=== PATIENT | female | born 1970 | race Caucasian/White ===

== ENCOUNTER 2020-03-24 09:52 | Emergency (ER) | payer BC, SELFPAY ==
--- NOTE | 2020-03-24 10:14 | HMH.EDUTC ---
[facility] [place] Disposition Clinical Impression: Exposure to COVID-19 virus Pharyngitis Qualifiers: Pharyngitis/tonsillitis etiology: unspecified etiology Qualified Code(s): J02.9 - Acute pharyngitis, unspecified Disposition: Home, Self-Care Condition on Discharge: Good Instructions: Sore Throat, Preventing the Spread of Coronavirus Discharge Instructions Additional Instructions: Drink plenty of fluids. Take tylenol for pain or fever. Take the medications as directed. Follow up with your regular doctor. GO TO THE ER FOR ANY WORSENING SYMPTOMS Referrals: Keith Mccain [Primary Care Provider] - Forms: Work/School Release Time of Disposition: 10:33 Medical Decision Making - Medical Records Medical records reviewed: No: I reviewed the patient's medical records. - Lukas Inquiry Pt receiving controlled substance: No Vital Signs: 03/24/20 10:21 03/24/20 10:38 Temperature 98.4 F 98.4 F Temperature Source Oral Pulse Rate 84 Pulse Rate [Left Brachial] 84 Respiratory Rate 20 20 Blood Pressure 130/86 Blood Pressure [Left Arm] 130/86 Blood Pressure Mean [Left Arm] 100 Blood Pressure Source [Left Arm] Automatic Cuff Blood Pressure Position [Left Arm] Sitting 02 Sat by Pulse Oximetry 97 Oxygen Delivery Method Room Air Orders (Tests/Meds): ORDERS Category Date Time Status Covid-19 Nasal PCR Sendout Ady Routine Lab 03/24/20 10:03 Received [facility] [place] HPI - General Stated complaint: Covid exposure Time Seen by Provider: 03/24/20 10:14 - History of Present Illness Provider Complaint: Her tested positive for covid yesteday. She states that last week she was having a cough, sinus congestion and sore throat. Since then her symptoms have got better other than she is still having the sore throat. - Related Data Home Medications Medication Instructions Recorded Confirmed Famotidine 40 mg PO DAILY 03/24/20 03/24/20 Gabapentin [Neurontin 600mg 600 mg PO TID 03/24/20 03/24/20 tablet] Allergies Allergy/AdvReac Type Severity Reaction Status Date / Time codeine Allergy Verified 05/30/18 11:54 [facility] History - Hepatitis A Screen Attestation statement:: This patient has been screened for Hepatitis A risk factors. I have reviewed the patient's past medical history: Yes - Social History Smoking Status: Never smoker Alcohol Intake: never Occupational Status: other ROS Obtained: Yes All systems reviewed & no additional complaints - Constitutional Constitutional: Reports system reviewed and no additional complaints, except as docu - Eyes Eyes: Reports system reviewed and no additional complaints, except as docu - ENT Ears, Nose, Mouth, and Throat: Reports system reviewed and no additional complaints, except as docu - Cardiovascular Cardiovascular: Reports system reviewed and no additional complaints, except as docu - Respiratory Respiratory: Yes system reviewed and no additional complaints, except as docu - Gastrointestinal Gastrointestingal: Reports: system reviewed and no additional complaints, except as docu Physical Exam - General General appearance: alert, in no apparent distress - Head Head exam: atraumatic, normocephalic, normal inspection - Eye Eye exam: Present: normal appearance, PERRL, EOMI - ENT ENT exam: Present: normal exam, normal oropharynx, mucous membranes moist, TM's normal bilaterally, normal external ear exam - Neck Neck exam: Present: normal inspection, full ROM, trachea midline. Absent: meningismus, lymphadenopathy - Chest Chest inspection: Present: normal inspection, symmetric chest wall rise. Absent: tenderness - Respiratory Respiratory exam: Present: normal lung sounds bilaterally. Absent: respiratory distress - Cardiovascular Cardiovascular exam: Present: regular rate, normal rhythm. Absent: JVD - Abdominal Exam Abdominal exam: Present: soft, normal bowel sounds. Absent: distention, tenderness, guar
[2020-03-24 10:21] VITALS: BP 130/86; PULSE 84; RESP 20; TEMP 36.9; O2SAT 97; BMI 30.4
[2020-03-24 10:38] VITALS: BP 130/86; PULSE 84; RESP 20; TEMP 36.9; O2SAT 97
[2020-03-25 12:10] LABS: Covid-19 Nasal PCR Sendout Lex Positive
--- NOTE | 2020-03-25 12:15 | PC.NURSE ---
Patient notified of positive COVID results.
== END 2020-03-24 10:39 | disposition home or self-care (01) ==
PROVIDERS: Emergency Provider Nurse Practitioner Family; PCP Family Medicine
DX: U07.1 COVID-19 (principal)
CPT/HCPCS: 99201; U0004

== ENCOUNTER 2020-12-26 10:29 | Emergency (ER) | payer OTHER, SELFPAY ==
[2020-12-26 10:50] VITALS: BP 138/76; PULSE 80; RESP 18; TEMP 36.4; O2SAT 98; BMI 32.6
--- NOTE | 2020-12-26 11:25 | HMH.EDUTC ---
[facility] [place] Clinical Impression: Low back pain with sciatica Qualifiers: Chronicity: unspecified Back pain laterality: left Sciatica laterality: sciatica of left side Qualified Code(s): M54.42 - Lumbago with sciatica, left side Disposition: Home, Self-Care Condition on Discharge: Good Instructions: Low Back Pain, DI for Low Back Pain Additional Instructions: *Ibuprofen steph 6 hours with meal as needed for pain/inflammation *Remember you had a Toradol shot in the clinic today, which is similar to Motrin *Not additional anti-inflammatory like motrin, aleve, advil with the above amount of ibuprofen. You can still take Tylenol every 4 hours as needed if you need something else for pain *Ice 20 minutes every 2 hours for the first 48 hours after the initial injury followed by moist heat every 20 minutes 3-4 times a day to affected area *Muscle relaxer every 8 hours as needed for muscle spasms but remember, it WILL cause drowsiness You cannot take it and drive, operate machinery or care for small children. *Keep this area active, no movement leads to more stiffness, However take it easy and avoid heavy lifting pushing or pulling *Follow up with you family doctor if no improvement for further treatment Prescriptions: Etodolac 200 mg PO Q6HP PRN #20 cap PRN Reason: Moderate Pain Transmission Status: Received by [facility] #[id number] Cyclobenzaprine HCl [Flexeril 10mg tablet] 10 mg PO Q8HP PRN #15 tab PRN Reason: Muscle Spasm Transmission Status: Received by [facility] #[id number] Referrals: Provider,Referral, MD [Primary Care Provider] - As needed Forms: Work/School Release Time of Disposition: 11:59 Medical Decision Making - Lukas Inquiry Pt receiving controlled substance: No Lukas was queried for this patient: No Vital Signs: 12/26/20 10:50 12/26/20 11:51 Temperature 97.6 F 97.6 F Temperature Source Temporal Artery Scan Pulse Rate 80 Pulse Rate [Right Brachial] 80 Respiratory Rate 18 18 Blood Pressure 138/76 Blood Pressure [Right Arm] 138/76 Blood Pressure Mean [Right Arm] 96 Blood Pressure Source [Right Arm] Automatic Cuff Blood Pressure Position [Right Arm] Sitting 02 Sat by Pulse Oximetry 98 Oxygen Delivery Method Room Air Orders (Tests/Meds): ED MEDICATIONS Discontinued Medications Generic Name Dose Route Start Last Admin Trade Name Dhruv PRN Reason Stop Dose Admin Ceftriaxone Sodium 1 gm 12/26/20 11:31 12/26/20 11:51 Ceftriaxone 1gm Vial IM 12/26/20 11:32 Not Given ONCE ONE Protocol Ketorolac Tromethamine 60 mg 12/26/20 11:33 12/26/20 11:45 Ketorolac 60mg/2ml Vial IM 12/26/20 11:34 60 mg ONCE ONE Administration Lidocaine HCl 0 ml 12/26/20 11:31 12/26/20 11:51 Lidocaine 1% 5ml Pf Vial IM 12/26/20 11:32 Not Given ONCE ONE Methylprednisolone Sodium Succinate 125 mg 12/26/20 11:31 12/26/20 11:45 Methylprednisolone Sod Succ 125mg Vial IM 12/26/20 11:32 125 mg ONCE ONE Administration Medical Decision Narrative: Discusses xray with patient and she declined states that she has already had MRI and has history of back pain and fusion [facility] [place]PI - General Stated complaint: lower back pain Time Seen by Provider: 12/26/20 11:26 Mode of Arrival: Ambulatory Source of Information: Patient Limitations: No Limitations Description of Symptoms (Recalled from Triage Doc. by RN): PATIENT STATES SHE WAS CRAWLING UNDER THE SINK ON SATURDAY AND PULLED MUSCLES TO LEFT HIP AND LEFT LOWER BACK HEENT Symptoms (Recalled from RN notes): No Resp Symptoms (Recalled from RN notes): No Skin Symptoms (Recalled from RN notes): No MS Symptoms (Recalled from RN notes): Yes Functional Status (Recalled from RN notes): WNL - History of Present Illness Provider Complaint: Patient states that she has problems in her lower back State that on Saturday she crawled under her sink and was working on her plumbing States that ever since she has been having lalitha
[2020-12-26 11:51] VITALS: BP 138/76; PULSE 80; RESP 18; TEMP 36.4; O2SAT 98
== END 2020-12-26 12:00 | disposition home or self-care (01) ==
PROVIDERS: Emergency Provider Nurse Practitioner
DX: M54.42 Lumbago with sciatica, left side (principal)
CPT/HCPCS: 96372; 99202; G0463

== ENCOUNTER → 2022-03-16 10:45 | Outpatient (CLI) | payer OTHER, SELFPAY ==
--- NOTE | 2022-03-16 11:00 | XR_ITS ---
FINAL REPORT CLINICAL HISTORY: ankle pain, hx tendon repair FINDINGS: RIGHT ANKLE Three views of the right ankle were obtained. There is no acute fracture or dislocation. The joint spaces and mortise are intact. There is a small plantar calcaneal spur. There is no soft tissue abnormality. IMPRESSION: No acute bony abnormality. Reviewed, Interpreted and Dictated by Bhupendra Castellanos III, MD Transcribed by Lis Shea Authenticated and [facility]
== END ==
PROVIDERS: PCP Internal Medicine; Visit Provider Orthopaedic Surgery
DX: M25.571 Pain in right ankle and joints of right foot (principal)
CPT/HCPCS: 73610

== ENCOUNTER 2023-01-20 13:48 | Emergency (ER) | payer OTHER, SELFPAY ==
[2023-01-20 13:49] VITALS: BP 151/84; PULSE 104; RESP 18; TEMP 37.1; O2SAT 97; BMI 31.3
--- NOTE | 2023-01-20 14:13 | EXP.UTC ---
Discharge Plan Disposition Patient Disposition: Home, Self-Care Condition: Good Prescriptions Prescriptions: New benzonatate [benzonatate] 100 mg capsule 100 mg PO TIDP PRN (Reason: Cough) Qty: 30 0RF ondansetron 4 mg Tablet,Disintegrating 4 mg PO Q8H PRN (Reason: Nausea) Qty: 12 0RF No Action ondansetron 4 mg tablet,disintegrating 4 mg PO Patient Comments: DISSOLVE 1 TABLET ON TONGUE EVERY 6 HOURS NEEDED FOR NAUSEA phentermine 37.5 mg capsule 37.5 mg PO Patient Comments: TAKE 1 CAPSULE BY MOUTH EVERY DAY loratadine [Claritin] 10 mg tablet 10 mg PO DAILY fluconazole [Diflucan] 150 mg tablet 150 mg PO ONCE Qty: 1 0RF tramadol 100 mg tablet 100 mg PO Q6H PRN (Reason: pain) Qty: 8 0RF sulfamethoxazole-trimethoprim [Bactrim DS] 800-160 mg tablet 1 tab PO Q12H 10 Days Qty: 20 0RF gabapentin 600 MG tablet 600 mg PO TID Referrals Follow up/Referrals: Bonilla Lyons [Primary Care Provider] - See instructions Activity Restrictions/Add. Instructions Additional Instructions/Restrictions: Drink plenty of fluids. Take tylenol or ibuprofen for pain or fever. Take the medications as directed. Follow up with your regular doctor. GO TO THE ER FOR ANY WORSENING SYMPTOMS Clinical Impressions Clinical Impression: COVID-19, Acute viral syndrome Stand Alone Forms Stand Alone Forms: Work/School Release Instructions Patient Instructions: Coronavirus Disease 2019, Preventing the Spread of Coronavirus Discharge Instructions Discharge ED Provider: Rod Sommer [facility] General Stated complaint: congestion, body ache and NEWELL Mode of Arrival: Ambulatory Source of Information: Patient Limitations: No Limitations Time Seen by Provider: 01/20/23 14:13 Description of Symptoms (Recalled from Triage Doc. by RN): Reports being positive on a home covid test today. Complaint of body aches, sneezing cough and headache. HEENT Symptoms (Recalled from RN notes): Yes Resp Symptoms (Recalled from RN notes): No Skin Symptoms (Recalled from RN notes): No MS Symptoms (Recalled from RN notes): No Functional Status (Recalled from RN notes): wnl History of Present Illness Provider Complaint: she state that for the past 3 days she has had body aches, chills, fever, malaise, cough and congestion. She took a home covid-19 test this morning and it was positive. Related Data Home Medications Medication Instructions Recorded Confirmed gabapentin 600 mg tablet 600 mg PO TID GASTRITIS 03/24/20 03/16/22 loratadine 10 mg tablet (Claritin) 10 mg PO DAILY 11/24/21 03/16/22 ondansetron 4 mg disintegrating 4 mg PO 11/24/21 03/16/22 tablet phentermine 37.5 mg capsule 37.5 mg PO 11/24/21 03/16/22 Previous Rx's Medication Instructions Recorded fluconazole 150 mg tablet 150 mg PO ONCE #1 tab 11/24/21 (Diflucan) sulfamethoxazole 800 1 tab PO Q12H 10 days #20 tabs 11/24/21 mg-trimethoprim 160 mg tablet (Bactrim DS) tramadol 100 mg tablet 100 mg PO Q6H PRN pain #8 tabs 11/24/21 benzonatate 100 mg capsule 100 mg PO TIDP PRN Cough #30 caps 01/20/23 ondansetron 4 mg disintegrating 4 mg PO Q8H PRN Nausea #12 tabs 01/20/23 tablet Allergies Allergy/AdvReac Type Severity Reaction Status Date / Time codeine Allergy Verified 03/16/22 12:13 Worker's Comp Is this a Worker's Comp case?: No [facility] Disclaimer: The information contained in this section may have been updated after the patient was seen, as this information can be updated by other users. Social History Smoking Status: Never smoker alcohol intake: never current occupational status: other Travel in the last 8 weeks: None ROS Obtained: Yes All systems reviewed & no additional complaints except as documented Constitutional Constitutional: Reports chills and Reports fever(s) Eyes Eyes: Denies eye discharge ENT Ears, Nose
[2023-01-20 14:55] VITALS: BP 151/84; PULSE 104; RESP 18; TEMP 37.1; O2SAT 97
== END 2023-01-20 14:56 | disposition home or self-care (01) ==
PROVIDERS: Emergency Provider Nurse Practitioner Family; PCP Internal Medicine
DX: U07.1 COVID-19 (principal); R50.9 Fever, unspecified; R53.81 Other malaise
CPT/HCPCS: 99212; 99214; G0463

== ENCOUNTER 2023-06-26 08:05 | Emergency (ER) | payer BC, OTHER, SELFPAY ==
[2023-06-26 08:15] VITALS: BP 125/77; PULSE 80; RESP 19; TEMP 37.1; O2SAT 99; BMI 31.6
--- NOTE | 2023-06-26 08:31 | EXP.UTC ---
Discharge Plan Disposition Patient Disposition: Home, Self-Care Condition: Good Prescriptions Prescriptions: New pseudoephedrine HCl 30 mg tablet 30 mg PO Q6HP PRN (Reason: Congestion) Qty: 30 0RF methylprednisolone 4 mg Tablets,Dose Pack 4 mg PO DIRECTED 6 Days Qty: 21 0RF Rx Instructions: Take 1 pack as directed for 6 days amoxicillin-pot clavulanate 875-125 mg Tablet 1 tab PO Q12H Qty: 20 0RF No Action loratadine [Claritin] 10 mg tablet 10 mg PO DAILY Xiidra 5 % dropperette 1 drp Eye-Both BID famotidine 40 mg tablet 40 mg PO DAILY Wegovy 0.5 mg/0.5 mL pen injector See Rx Instructions .ROUTE .COMPLEX Rx Instructions: see rx dosage lisdexamfetamine [Vyvanse] 40 mg capsule 40 mg PO DAILY gabapentin 600 MG tablet 600 mg PO TID Referrals Follow up/Referrals: Provider,Referral, MD [Primary Care Provider] - See instructions Activity Restrictions/Add. Instructions Additional Instructions/Restrictions: Drink plenty of fluids. Take tylenol or ibuprofen for pain or fever. Take the medications as directed. Don't take the pseudophedrine for longer that a couple of days. It might cause your blood pressure to go up. Follow up with your regular doctor. GO TO THE ER FOR ANY WORSENING SYMPTOMS Clinical Impressions Clinical Impression: Otitis media, right Instructions Patient Instructions: Middle Ear Infection, Amoxicillin and Clavulanic Acid, Dexamethasone Injection Discharge ED Provider: Rod Sommer [facility] General Stated complaint: pain, popping in rt ear Time Seen by Provider: 06/26/23 08:30 History of Present Illness Provider Complaint: She states that for the past 3 days she has had worsening right ear pain and pressure. She also has had a runny nose. She denies chest congestion. She denies fever. Related Data Home Medications Medication Instructions Recorded Confirmed gabapentin 600 mg tablet 600 mg PO TID GASTRITIS 03/24/20 06/26/23 loratadine 10 mg tablet (Claritin) 10 mg PO DAILY 11/24/21 06/26/23 famotidine 40 mg tablet 40 mg PO DAILY 06/19/23 06/26/23 lifitegrast 5 % eye drops in a 1 drp Eye-Both BID 06/19/23 06/26/23 dropperette (Xiidra) lisdexamfetamine 40 mg capsule 40 mg PO DAILY 06/19/23 06/26/23 (Vyvanse) semaglutide (weight loss) 0.5 See Rx Instructions .Route .COMPLEX 06/19/23 06/26/23 mg/0.5 mL subcutaneous pen injector (Stephen) Previous Rx's Medication Instructions Recorded amoxicillin 875 mg-potassium 1 tab PO Q12H #20 tabs 06/26/23 clavulanate 125 mg tablet methylprednisolone 4 mg tablets in 4 mg PO DIRECTED 6 days #21 tabs 06/26/23 a dose pack pseudoephedrine HCl 30 mg tablet 30 mg PO Q6HP PRN Congestion #30 06/26/23 tabs Allergies Allergy/AdvReac Type Severity Reaction Status Date / Time codeine Allergy Verified 06/26/23 08:39 [facility] Disclaimer: The information contained in this section may have been updated after the patient was seen, as this information can be updated by other users. Medical History (Updated 06/26/23 @ 08:54 by Rod Sommer APRN) Acute carpal tunnel syndrome Decreased libido Dyspareunia Vaginal dryness Surgical History H/O tubal ligation H/O: hysterectomy History of back surgery History of cholecystectomy S/P tendon repair Family History Other Cancer Coronary artery disease Heart attack Hyperlipidemia Hypertension Thyroid disorder Social History Smoking Status: Never smoker alcohol intake: never current occupational status: other Travel in the last 8 weeks: None ROS Obtained: Yes All systems reviewed & no additional complaints except as documented Constitutional Constitutional: Denies chills and Denies fever(s) Eyes Eyes: Denies eye discharge ENT Ears, Nose, Mouth, and Throat: Denies ear discharge, Reports otalgia, Denies hearing loss, Denies sinus pain and Reports sore throat Cardiovascular Cardiovascular: Denies chest pain and Denies dyspnea Respiratory Respiratory: Denies chest congestion, Reports cough and Denies dyspnea Gastrointestinal Gastrointestingal: Denies abdominal pain, diarrhea, nausea or vomiting Musculoskeletal Musculoskeletal: Denies arthralgias Integumentary/Breasts Skin/Breast: Denies rash Physical Exam General General appearance: alert and in no apparent distress Head Head exam: atraumatic, normocephalic and normal inspection Eye Eye exam: Present normal appearance; Absent PERRL or EOMI ENT ENT exam: Present mucous membranes moist and normal external ear exam Expanded ENT Exam TM/Canal exam: Bilateral TM: erythema, bulging and effusion Nose exam: Absent sinus tenderness Nasal speculum exam: Bilateral: normal Mouth exam: Present normal external inspection and other; Absent drooling Teeth exam: Present normal inspection Throat exam: Present tonsillar erythema and tonsillomegaly Neck Neck exam: Present normal inspection, full ROM and trachea midline; Absent tenderness, meningismus or lymphadenopathy Chest Chest inspection: Present normal inspection and symmetric chest wall rise; Absent tenderness Respiratory Respiratory exam: Present normal lung sounds bilaterally; Absent respiratory distress, wheezes or stridor Cardiovascular Cardiovascular exam: Present regular rate, normal rhythm and normal heart sounds; Absent tachycardia or irregular rhythm Abdominal Exam Abdominal exam: Present soft and normal bowel sounds; Absent distention, tenderness, guarding, rebound or rigidity Extremities Exam Extremities exam: Present normal inspection and normal capillary refill; Absent tenderness, joint swelling or calf tenderness Back Exam Back exam: Present normal inspection and full ROM; Absent tenderness, CVA tenderness (R) or CVA tenderness (L) Neurological Exam Neurological exam: Present alert, oriented X3, CN II-XII intact, normal gait and reflexes normal; Absent motor sensory deficit Psychiatric Psychiatric exam: Present normal affect and normal mood Skin Skin exam: Present warm, dry, intact and normal color Lymphatic Lymphatic Findings: no adenopathy Medical Decision Making Medical Records Medical records reviewed: No I reviewed the patient's medical records. Lukas Inquiry Pt receiving controlled substance: No
[2023-06-26] MEDS: DEXAMETHASONE 4MG/ML 1ML VIAL 8 MG IM (08:49)
[2023-06-26 09:06] VITALS: BP 125/77; PULSE 80; RESP 18; TEMP 37.1; O2SAT 99
== END 2023-06-26 09:06 | disposition home or self-care (01) ==
PROVIDERS: Emergency Provider Nurse Practitioner Family
DX: H66.91 Otitis media, unspecified, right ear (principal); R09.81 Nasal congestion
CPT/HCPCS: 96372; 99212; 99214; G0463

== ENCOUNTER 2025-04-29 13:06 | Outpatient (CLI) | payer BC, OTHER, SELFPAY ==
[2025-04-29 14:39] LABS: Coronavirus 19, PCR Not Detected (NotDetected); Influenza A, PCR Not Detected (NotDetected); Influenza B, PCR Not Detected (NotDetected)
--- OUTSIDE RECORDS SUMMARY | 2025-05-02 13:09 | XMS_ITS | Data Portability ---
Author Organization PAUL Quitman DEIRDRE Espinoza SARANAC CLOSED Address [address] [facility] [address] [place] [address] Assessment Encounter Date Assessment Date Assessment LastModified by Organization Details LastModified Time 02/17/2025 02/17/2025 - 54-year-old female with a history of adult attention deficit hyperactivity disorder, restless legs syndrome, and gastroesophageal reflux disease, presenting for medication management. - Medications, including Gabapentin, Pepcid, Zofran, and Tirzepatide, appear to manage the patient s symptoms effectively and have positively impacted her weight management efforts. - No acute issues requiring immediate intervention were identified during the conversation. [email or web address] Not available 02/17/2025 09:26:59 Plan of Treatment Reminders Order Date Submit Date Provider Last Modified By Organization Details Last Modified Time Details Appointments RECH KORI 2024 09:00A M DR ROSENBERG Not available Not available Not available Lab adrienne bowman 2024 025 [facility], [address] [place] [address], [id number], 08/19/2024 20:09:25 CMP seru m or plas ma 2024 025 [facility], [address] [place] [address], [id number], 08/19/2024 20:09:23 CBC w/ auto diff 2024 025 [facility], [address] [place] [address], [address], 08/19/2024 20:15:50 glyc ohem oglo bin, tota l, bloo d 2024 025 [facility], [address] [place] [address], [address], 08/19/2024 20:05:10 TSH, seru m or plas ma 2024 025 [facility], [address] [place] [address], [address], 08/19/2024 19:55:26 urin ardhika is, comp lete 2024 025 [facility], [address] [place] [address], [address], 08/19/2024 20:11:56 Referral None mariel rded . Procedures None mariel rded . Surgeries None mariel rded . Imaging None mariel rded . Medication Orders Neur onti n 600 mg tabl et 2024 025 [facility] ([facility]), [address], [address], 02/17/2025 09:24:53 famo tidi ne 40 mg tabl et 2024 025 [facility]), [address] [facility] [address], [place], [address], 02/17/2025 09:24:53 onda nset abundio 4 mg disi nteg rati ng tabl et 2024 025 [facility] ([facility]), [address] [facility] [address], [address], 02/17/2025 09:24:53 Vyva nse 50 mg caps ule 2024 025 [facility] ([facility]), [address] [place] [address], [address], 02/17/2025 09:24:54 Neur onti n 600 mg tabl et 2024 025 [facility], [address] [place] [address], [address], 11/18/2024 09:30:05 Vyva nse 50 mg caps ule 2024 025 [facility], [address] [place] [address] [address], [place], [address], 11/18/2024 09:30:05 Neur onti n 600 mg tabl et 2024 025 [facility], [address] [place] [address] [address], [place], [address], 08/19/2024 09:37:10 bacl ofen 10 mg tabl et [address], [address], [address], 08/19/2024 15:01:05 onda nset abundio 4 mg disi nteg rati ng tabl et 2024 025 tamir [facility], [address] [place] [address], [address], [place], [address], 08/19/2024 15:01:05 famo tidi ne 40 mg tabl et 2024 025 tamir [facility], [address] [place] [address], [address], [place], [address], 08/19/2024 15:01:05 Vyva nse 50 mg caps ule 2024 025 [facility], [address], [place], [address], 08/19/2024 09:37:09 Neur onti n 600 mg tabl et 2023 024 [facility], [address] [place] [address], [address], [place], [address], 05/13/2024 09:14:07 bacl ofen 10 mg tabl et 2023 024 [facility], [address] [place] [address], [address], [address], 05/13/2024 09:14:07 onda nset abundio 4 mg disi nteg rati ng tabl et 2023 024 [facility], [address] [place] [address], [address], [place], [address], 05/13/2024 09:14:06 Vyva nse 40 mg caps ule 2023 025 [facility], [address] [place] [address], [address], [place], [address], 08/19/2024 09:34:00 Vyva nse 50 mg caps ule 2023 024 [facility], [address] [place] [address], [address], [place], [address], 05/13/2024 09:17:57 Neur onti n 600 mg tabl et 2023 024 [facility], [address] [place] [address], [address] [place] [address], [address], 02/12/2024 09:30:33 bacl ofen 10 mg tabl et 2023 024 [facility], [address] [place] [address], [address] [place] [address], [address], 02/12/2024 09:30:32 famo tidi ne 40 mg tabl et [address], [address], [place], [address], 02/12/2024 09:30:31 Vyva nse 40 mg caps ule [email or web address], [address] [place] [address], [address], 08/19/2024 09:33:54 Patient TargetsNo targets recorded. Patient Instructions Encounter Date Encounter Id Patient Instructions Last Modified By Organization Details Last Modified Time 02/17/2025 [id number] - Continue current medications as prescribed. - Monitor weight and report any significant changes. 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 - Maintain lifestyle and dietary plan for weight management. - Seek care if new symptoms arise or if current conditions worsen. [email or web address] Not available 02/17/2025 09:27:01 Reason for Referral None Reported. Results Created Date Observation Date Name Description Value Unit Range Abnormal Flag Note LastModifiedBy Organization Detail LastModifiedTime 08/20/1908/19/2024 TSH TSH 1.850 u[IU] /mL 0.270- 4.200 normal Not Available [facility] [address] [place], [address], 08/19/2024 19:55:26 08/20/1908/19/2024 GLYCO HEMOG LOBIN A1C glyco HGB A1C 5.3 % 0.0-5. 6 normal Not Available [facility] [address] [place], [address], 08/19/2024 20:05:10 08/20/19 25 08/19/2024 GLYCO HEMOG LOBIN A1C estimated avg. glucose 105 mg/dL _(bebe c) normal A1c value s betwe en 5.7% to 6.4% indic ate predi abete s. Resul ts 6.5% or great er is diagn ostic of diabe stefan. Ameri can Diabe stefan Ass[employer] iatio n (diab etes. org) Not Available [facility] [address] [place] [address], [address], 08/19/2024 20:05:10 08/20/19 25 08/19/2024 COMP. METAB OLIC PANEL glucose 101 mg/dL 74-100 high Not Available [facility] [address] [place] [address], [address], 08/19/2024 20:09:23 08/20/19 25 08/19/2024 COMP. METAB OLIC PANEL blood urea nitrogen 14 mg/dL 6-20 normal Not Available [facility] [address] [place] [address], [address], 08/19/2024 20:09:23 08/20/19 25 08/19/2024 COMP. METAB OLIC PANEL creatinine 0.96 mg/dL 0.50-0 .95 high Not Available [facility] [address] [place] [address], [address], 08/19/2024 20:09:23 08/20/19 25 08/19/2024 COMP. METAB OLIC PANEL BUN/creatini ne ratio 15 (calc ) 10-20 normal Not Available [facility] [address] [place] [address], [address], 08/19/2024 20:09:23 08/20/19 25 08/19/2024 COMP. METAB OLIC PANEL sodium 139 mmol/ L 136-14 5 normal Not Available [facility] [address] [place] [address], [address], 08/19/2024 20:09:23 08/20/19 25 08/19/2024 COMP. METAB OLIC PANEL potassium 4.3 mmol/ L 3.4-5. 0 normal Not Available [facility] [address] [place] [address], [address], 08/19/2024 20:09:23 08/20/19 25 08/19/2024 COMP. METAB OLIC PANEL chloride 101 mmol/ L 98-107 normal Not Available [facility] [address] [place] [address], [address], 08/19/2024 20:09:23 08/20/19 25 08/19/2024 COMP. METAB OLIC PANEL carbon dioxide 25 mmol/ L 22-31 normal Not Available [facility] [address] [place] [address], [address], 08/19/2024 20:09:23 08/20/19 25 08/19/2024 COMP. METAB OLIC PANEL anion gap 13 (calc ) 7-25 normal Not Available [facility] [address] [place] [address], [address], 08/19/2024 20:09:23 08/20/19 25 08/19/2024 COMP. METAB OLIC PANEL calcium 10.0 mg/dL 8.6-10 .2 normal Not Available [facility] [address] [place] [address], [address], 08/19/2024 20:09:23 08/20/19 25 08/19/2024 COMP. METAB OLIC PANEL total protein 7.7 g/dL 6.4-8. 3 normal Not Available [facility] [address] [place] [address], [address], 08/19/2024 20:09:23 08/20/19 25 08/19/2024 COMP. METAB OLIC PANEL albumin 4.7 g/dL 3.5-5. 2 normal Not Available [facility] [address] [place] [address], [address], 08/19/2024 20:09:23 08/20/19 25 08/19/2024 COMP. METAB OLIC PANEL globulin 3.0 1.5-4. 5 normal Not Available [facility] [address] [place] [address], [address], 08/19/2024 20:09:23 08/20/19 25 08/19/2024 COMP. METAB OLIC PANEL albumin/glob ulin ratio 1.6 (calc ) 1.1-2. 5 normal Not Available [facility] [address] [place] [address], [address], 08/19/2024 20:09:23 08/20/19 25 08/19/2024 COMP. METAB OLIC PANEL bilirubin, total 0.4 mg/dL 0.1-1. 2 normal Not Available [facility] [address] [place] [address], [address], 08/19/2024 20:09:23 08/20/19 25 08/19/2024 COMP. METAB OLIC PANEL alkaline phosphatase 91 U/L 30-121 normal Not Available [facility] [address] [place] [address], [address], 08/19/2024 20:09:23 08/20/19 25 08/19/2024 COMP. METAB OLIC PANEL AST 21 U/L 0-32 normal Not Available [facility] [address] [place] [address], [address], 08/19/2024 20:09:23 08/20/19 25 08/19/2024 COMP. METAB OLIC PANEL ALT 20 U/L 0-33 normal Not Available [facility] [address] [place] [address], [address], 08/19/2024 20:09:23 08/20/19 25 08/19/2024 COMP. METAB OLIC PANEL GFR 70 >= 60 normal NOT E New calcu latio n for GFR (CKD- EPI 2020) is formu lated witho ut race adjus tment facto rs at the recom menda tion of the [employer] and Elli Galvin ty of Nephr ology . This calcu latio n has not been valid ated in pregn ant women . For pedia kat patie nts refer to https ://yamilka w.eloy colemany.o rg/pr ofess ional s/KDO QI/gf r_cal culat orPed Not Available [facility] [address] [place] [address], [address], 08/19/2024 20:09:23 08/20/19 25 08/19/2024 LIPID PROFI LE HDL cholesterol 79 mg/dL 50-242 normal Not Available [facility] [address] [place] [address], [address], 08/19/2024 20:09:25 08/20/19 25 08/19/2024 LIPID PROFI LE triglyceride s 85 mg/dL 0-149 normal TRIGL YCERI DE RANGE S VEGA L: < 150 BORDE RLINE HIGH: 150 - 199 HIGH: 200 - 499 VERY HIGH: > OR = 500 Not Available [facility] [address] [place] [address], [address], 08/19/2024 20:09:25 08/20/19 25 08/19/2024 LIPID PROFI LE cholesterol 228 mg/dL 0-199 high STEPHEN STERO L (TOTA L) RANGE S ROLAND ABLE: < 200 BORDE RLINE : 200 - 239 HIGHE R RISK: > 239 Not Available [facility] [address] [place] [address], [address], 08/19/2024 20:09:25 08/20/1908/19/2024 LIPID PROFI LE LDL cholesterol 132 mg/dL _(bebe c) 0-99 high LDL STEPHEN STERO L RANGE S OPTIM AL: < 100 NEAR/ ABOVE OPTIM AL: 100 - 129 BORDE RLINE HIGH: 130 - 159 HIGH: 160 - 189 VERY HIGH: > OR = 190 Not Available [facility] [address] [place] [address], [address], 08/19/2024 20:09:25 08/20/19 25 08/19/2024 LIPID PROFI LE chol/HDL ratio (calc) 2.9 mg/dL normal NO VEGA L RANGE ESTAB LISHE D FOR STEPHEN STERO L/HDL RATIO (CALC ULATE D). Not Available [facility] [address] [place] [address], [address], 08/19/2024 20:09:25 08/20/19 25 08/19/2024 URINA LYSIS color Nicole abnormal Not Available [facility] [address] [place] [address], [address], 08/19/2024 20:11:55 08/20/19 25 08/19/2024 URINA LYSIS appearance Clear normal Not Available [facility] [address] [place] [address], [address], 08/19/2024 20:11:55 08/20/19 25 08/19/2024 URINA LYSIS glucose Normal mg/dL normal normal Not Available [facility] [address] [place] [address], [address], 08/19/2024 20:11:55 08/20/19 25 08/19/2024 URINA LYSIS bilirubin Negati ve mg/dL negati ve normal Not Available [facility] [address] [place] [address], [address], 08/19/2024 20:11:55 08/20/19 25 08/19/2024 URINA LYSIS ketone Negati ve mg/dL negati ve normal Not Available [facility] [address] [place] [address], [address], 08/19/2024 20:11:55 08/20/19 25 08/19/2024 URINA LYSIS specific gravity 1.022 1.003- 1.035 normal Not Available [facility] [address] [place] [address], [address], 08/19/2024 20:11:55 08/20/19 25 08/19/2024 URINA LYSIS blood Negati ve /uL negati ve normal Not Available [facility] [address] [place] [address], [address], 08/19/2024 20:11:55 08/20/19 25 08/19/2024 URINA LYSIS pH 7 5.0 - 8.0 normal Not Available [facility] [address] [place] [address], [address], 08/19/2024 20:11:55 08/20/19 25 08/19/2024 URINA LYSIS protein Negati ve mg/dL negati ve normal Not Available [facility] [address] [place] [address], [address], 08/19/2024 20:11:55 08/20/19 25 08/19/2024 URINA LYSIS urobilinogen Normal mg/dL normal normal Not Available [facility] [address] [place] [address], [address], 08/19/2024 20:11:55 08/20/19 25 08/19/2024 URINA LYSIS nitrite Negati ve negati ve normal Not Available [facility] [address] [place] [address], [address], 08/19/2024 20:11:55 08/20/19 25 08/19/2024 URINA LYSIS leukocyte esterase 100 /uL negati ve abnormal Not Available [facility] [address] [place] [address], [address], 08/19/2024 20:11:55 08/20/19 25 08/19/2024 URINA LYSIS WBC, urine 5-10 0-5/hp f abnormal Not Available [facility] [address] [place] [address], [address], 08/19/2024 20:11:55 08/20/19 25 08/19/2024 URINA LYSIS RBC, urine Rare 0-2/hp f normal Not Available [facility] [address] [place] [address], [address], 08/19/2024 20:11:55 08/20/19 25 08/19/2024 URINA LYSIS squamous epi. cells 0-5 0-5/hp f normal Not Available [facility] [address] [place] [address], [address], 08/19/2024 20:11:55 08/20/19 25 08/19/2024 COMPL ETE BLOOD COUNT white blood cells 5.5 10*3/ uL 3.8-10 .8 normal Not Available [facility] [address] [place] [address], [address], 08/19/2024 20:15:50 08/20/19 25 08/19/2024 COMPL ETE BLOOD COUNT red blood cells 4.57 10*6/ uL 3.80-5 .20 normal Not Available [facility] [address] [place] [address], [address], 08/19/2024 20:15:50 08/20/19 25 08/19/2024 COMPL ETE BLOOD COUNT hemoglobin 14.1 g/dL 12.0-1 6.0 normal Not Available [facility] [address] [place] [address], [address], 08/19/2024 20:15:50 08/20/19 25 08/19/2024 COMPL ETE BLOOD COUNT hematocrit 40.6 % 35.0-4 7.0 normal Not Available [facility] [address] [place] [address], [address], 08/19/2024 20:15:50 08/20/19 25 08/19/2024 COMPL ETE BLOOD COUNT MCV 89 fL 80-100 normal Not Available [facility] [address] [place] [address], [address], 08/19/2024 20:15:50 08/20/19 25 08/19/2024 COMPL ETE BLOOD COUNT MCH 31 pg 26-35 normal Not Available [facility] [address] [place] [address], [address], 08/19/2024 20:15:50 08/20/19 25 08/19/2024 COMPL ETE BLOOD COUNT MCHC 35 g/dL 32-36 normal Not Available [facility] [address] [place] [address], [address], 08/19/2024 20:15:50 08/20/19 25 08/19/2024 COMPL ETE BLOOD COUNT RDW 13.8 % 11.0-1 5.0 normal Not Available [facility] [address] [place] [address], [address], 08/19/2024 20:15:50 08/20/19 25 08/19/2024 COMPL ETE BLOOD COUNT MPV 7.6 fL 6.2-10 .5 normal Not Available [facility] [address] [place] [address], [address], 08/19/2024 20:15:50 08/20/19 25 08/19/2024 COMPL ETE BLOOD COUNT platelet count 414 10*3/ uL 150-40 0 high Not Available [facility] [address] [place] [address], [address], 08/19/2024 20:15:50 08/20/19 25 08/19/2024 COMPL ETE BLOOD COUNT neutrophil,a bsolute 3.0 10*3/ uL 1.6-8. 4 normal Not Available [facility] [address] [place] [address], [address], 08/19/2024 20:15:50 08/20/19 25 08/19/2024 COMPL ETE BLOOD COUNT lymphocyte,a bsolute 2.0 10*3/ uL 0.4-5. 1 normal Not Available [facility] [address] [place] [address], [address], 08/19/2024 20:15:50 08/20/19 25 08/19/2024 COMPL ETE BLOOD COUNT monocyte,abs olute 0.4 10*3/ uL 0.0-1. 2 normal Not Available [facility] [address] [place] [address], [address], 08/19/2024 20:15:50 08/20/19 25 08/19/2024 COMPL ETE BLOOD COUNT eosinophil,a bsolute 0.1 10*3/ uL 0.0-0. 8 normal Not Available [facility] [address] [place] [address], [address], 08/19/2024 20:15:50 08/20/19 25 08/19/2024 COMPL ETE BLOOD COUNT basophil,abs olute 0.0 10*3/ uL 0.0-0. 3 normal Not Available [facility] [address] [place] [address], [address], 08/19/2024 20:15:50 08/20/19 25 08/19/2024 COMPL ETE BLOOD COUNT % neutrophils 55.0 % 42.0-7 8.0 normal Not Available [facility] [address] [place] [address], [address], 08/19/2024 20:15:50 08/20/19 25 08/19/2024 COMPL ETE BLOOD COUNT % lymphocytes 36.0 % 11.0-4 7.0 normal Not Available [facility] [address] [place] [address], [address], 08/19/2024 20:15:50 08/20/19 25 08/19/2024 COMPL ETE BLOOD COUNT % monocytes 7.6 % 0.0-11 .0 normal Not Available [facility] [address] [place] [address], [address], 08/19/2024 20:15:50 08/20/19 25 08/19/2024 COMPL ETE BLOOD COUNT % eosinophils 1.0 % 0.0-7. 0 normal Not Available [facility] [address] [place] [address], [address], 08/19/2024 20:15:50 08/20/19 25 08/19/2024 COMPL ETE BLOOD COUNT % basophils 0.4 % 0.0-3. 0 normal Not Available [facility] [address] [place] [address], [address], 08/19/2024 20:15:50 08/20/19 25 08/19/2024 COMPL ETE BLOOD COUNT nucleated red cells 0.1 % 0.0-0. 9 normal Not Available [facility] [address] [place] [address], [address], 08/19/2024 20:15:50 08/20/19 25 08/19/2024 COMPL ETE BLOOD COUNT nucleated RBCs, absolute 0.00 10*3/ uL not estab. normal Not Available [facility] [address] [place] [address], [address], 08/19/2024 20:15:50 Result Notes None recorded. Problems Name Problem SNOMED Code Status Onset Date Resolution Date Notes Provider Name and Address Organization Details Recorded Time Low back pain 604991936 Active 2022 TRINITY MERAZ, DO [address] [place], [address], [facility] 3 10:55:10 Adult attention deficit hyperactivity disorder 096186728 Active 2022 TRINITY MERAZ, DO [address] [place], [address], [facility] 3 10:55:12 Mixed hyperlipidemia 393391519 Active 2023 [place] [address] [place] [address], [address], [facility] 4 09:52:18 Gastroesophage al reflux disease without esophagitis 053796984 Active 2023 TRINITY MERAZ, DO [address] [place], [address], [facility] 4 12:16:15 Weight loss 94710055 Active 2023 TRINITY CHACHA MERAZ, DO [address] [place], [address], [facility] 4 09:13:23 Restless legs syndrome 93281362 Active 2023 TRINITY CHACHA MERAZ, DO [address] [place], [address], [facility] 4 09:13:30 Hyperlipidemia 88255813 Active 2023 TRINITY CHACHA MERAZ, DO [address] [place], [address], [facility] 4 09:15:34 Problem Notes None recorded. Procedures Surgical History Date Name Laterality Status Provider Name and Address Organization Details Recorded Time 08/15/19 24 Tympanogram [address] [facility] 08/15/2023 15:59:14 08/15/19 24 Audiogram [address] [facility] 08/15/2023 15:59:11 Partial Hysterectomy completed Not Available [facility] 08/19/2024 08:47:55 Back Surgery completed Not Available [facility] 08/19/2024 08:47:55 Cholecystectomy completed Not Available [facility] 08/19/2024 08:47:55 Colonoscopy completed Not Available [facility] 08/19/2024 08:47:55 Eye Surgery completed Not Available [facility] 08/19/2024 08:47:55 Tubal Ligation completed Not Available [facility] 08/19/2024 08:47:55 Imaging Results None recorded. Procedure Notes None recorded. Medical Equipment None Reported. Allergies No known drug allergies Medications Name Sig Start Date Stop Date Status Note LastModified by Organization Details LastModified Time tirzepatide 30mg/ml injectable Inject 0.33mL (10mg=33u nits) subcutane ously once weekly for four (4) weeks. active Not Available Not Available No t Available tirzepatide 10mg/ml injectable Inject 0.5mL (5mg=50 units) subcutane ously once weekly for four (4) weeks. active Not Available Not Available No t Available cyclobenzap rine 10 mg tablet TAKE 1 TABLET BY MOUTH ONCE DAILY 02/18 completed Not Available Not Available Not Available ofloxacin 0.3 % eye drops INSTILL 2 DROPS INTO THE AFFECTED EYE THREE TIMES DAILY FOR 5 DAYS 02/18 completed Not Available Not Available Not Available tretinoin 0.025 % topical cream APPLY A PEA SIZED AMOUNT TO THE FACE EVERY 3RD NIGHT TO NIGHTLY TOLERATED . DECREASE USE IF FACE BECOMES TOO DRY active Not Available Not Available No t Available famotidine 40 mg tablet Take 1 tablet every day by oral route. 2024 active Not Available Not Available Not Avai lable Neurontin 600 mg tablet Take 1 tablet 3 times a day by oral route for 90 days. 2024 active Not Available Not Available Not Avai lable amitriptyli ne 25 mg tablet TAKE 1 TABLET BY MOUTH EVERY NIGHT 08/19 completed Not Available Not Available Not Available baclofen 10 mg tablet Take 1 tablet twice a day by oral route for 90 days. 2024 active Not Available Not Available Not Avai lable benzonatate 100 mg capsule 02/18 completed Not Available Not Available Not Available estradiol 0.5 mg tablet TAKE 1 TABLET BY MOUTH DAILY 02/18 completed Not Available Not Available Not Available azelastine 137 mcg (0.1 %) nasal spray active Not Available Not Available Not Available methylpredn isolone 4 mg tablets in a dose pack FOLLOW PACKAGE DIRECTION S 11/12 completed Not Available Not Available Not Available ondansetron 4 mg disintegrat ing tablet Place 1 tablet twice a day by transling ual route as needed. 2024 active Not Available Not Available Not Avai lable amoxicillin 875 mg-potassiu m clavulanate 125 mg tablet TAKE 1 TABLET BY MOUTH EVERY 12 HOURS FOR 10 DAYS 08/13 completed Not Available Not Available Not Available Wal-phed 30 mg tablet TAKE 1 TABLET EVERY 6 HOURS NEEDED FOR CONGESTIO N 08/13 completed Not Available Not Available Not Available rosuvastati n 5 mg tablet active Not Available Not Available Not Available Sure Comfort Insulin Syringe 0.5 mL 31 gauge x 5/16 USE DIRECTED active Not Available Not Available No t Available Vyvanse 50 mg capsule Take 1 capsule every day by oral route. 2024 active Not Available Not Available Not Avai lable Vyvanse 40 mg capsule Take 1 capsule every day by oral route for 90 days. 08/19 completed Not Available Not Available Not Available testosteron e micronized (bulk) 100 % powder 11/12 completed Not Available Not Available Not Available Xiidra 5 % eye drops in a dropperette INSTILL 1 DROP IN BOTH EYES TWICE DAILY active Not Available Not Available No t Available Wegovy 1 mg/0.5 mL subcutaneou s pen injector 11/12 completed Not Available Not Available Not Available Wegovy 0.5 mg/0.5 mL subcutaneou s pen injector 11/12 completed Not Available Not Available Not Available Vitals Date Recorded Body height Body mass index (BMI) Body weight Heart rate Oxygen saturation Systolic And Diastolic Provider Name and Address Organization Details Last Updated DateTime 5 172.72 cm 29 kg/m2 73015.3 5 g 90 /min 98 % 130/72 mm[Hg] [facility] 5 08:57:52 Date Recorded Body height Body mass index (BMI) Body weight Heart rate Oxygen saturation Systolic And Diastolic Provider Name and Address Organization Details Last Updated DateTime 5 172.72 cm 27.4 kg/m2 78796.6 3 g 85 /min 98 % 125/82 mm[Hg] [facility] 5 09:17:37 Date Recorded Body height Body mass index (BMI) Body weight Heart rate Oxygen saturation Systolic And Diastolic Provider Name and Address Organization Details Last Updated DateTime 4 172.72 cm 30.5 kg/m2 00666.5 7 g 95 /min 97 % 132/72 mm[Hg] [facility] 4 09:22:40 Date Recorded Body height Body mass index (BMI) Body weight Heart rate Oxygen saturation Systolic And Diastolic Provider Name and Address Organization Details Last Updated DateTime 5 172.72 cm 26.6 kg/m2 03126.6 6 g 90 /min 99 % 128/74 mm[Hg] Susie Barrow [facility] 5 09:15:48 Date Recorded Body height Body mass index (BMI) Body weight Heart rate Oxygen saturation Systolic And Diastolic Provider Name and Address Organization Details Last Updated DateTime 4 172.72 cm 30.1 kg/m2 06119.2 9 g 88 /min 99 % 128/72 mm[Hg] Susie Barrow [facility] 4 08:41:04 Social History Question Answer Notes LastModified by Organizat ion Details LastModified Time Tobacco Smoking Status Never Smoker Arminda Shagufta puri, [facility] 02/18/2023 11:09:21 How Many Years Have You Consumed Alcohol? 20 [email or web address] Information not available 08/19/2024 What Is Your Level Of Caffeine Consumption? Occasional [email or web address] Information not available 08/19/2024 What Was The Date Of Your Most Recent Tobacco Screening? 08/14/2023 [email or web address] Information not available 08/14/2023 What Is Your Relationship Status? [email or web address] Information not available 08/19/2024 Sex: Unknown Functional Status Question Answer Note LastModified by Organizat ion Details LastModified Time How many times per week do you consume alcohol? 5-7 times per week [email or web address] Information not available 08/19/2024 Do you use any illicit or recreational drugs? No [email or web address] Information not available 08/19/2024 Do you or have you ever used any other forms of tobacco or nicotine? No [email or web address] Information not available 08/19/2024 What is your level of alcohol consumption? Moderate [email or web address] Information not available 08/19/2024 Are you currently employed? 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 Family History Relationship Description Onset Age of this Age Resolved Age Notes LastModified by Organization Details LastModified Time Father Arthritis [email or web address] Not available 08/19/2024 08:47:54 Paternal Grandmother Hypercholest erolemia [email or web address] Not available 2024 08:47:54 Paternal Grandmother Myocardial infarction [email or web address] Not available 08/19 08:47:54 Paternal Grandmother Arthritis [email or web address] Not available 07/26 08:47:54 Paternal Grandmother Hypertensive disorder [email or web address] Not available 2024 08:47:54 Paternal Grandmother Coronary arterioscler osis [email or web address] Not available 2024 08:47:54 Paternal Grandmother Heart disease [email or web address] Not available 2024 08:47:54 Mother Hypercholest erolemia [email or web address] Not available 2024 08:47:54 Mother Disorder of thyroid gland [email or web address] Not available 2024 08:47:54 Mother Arthritis [email or web address] Not available 08/19/2024 08:47:54 Mother Migraine [email or web address] Not available 0 08/19/2024 08:47:54 Mother Hypertensive disorder [email or web address] Not available 2024 08:47:54 Mother Obese API-[email or web address] Not available 08:47:54 Mother Coronary arterioscler osis API-[email or web address] Not available 2024 08:47:54 Mother Heart disease [email or web address] Not available 2024 08:47:54 Maternal Grandmother Arthritis API-[email or web address] Not available 07/26 08:47:54 Maternal Grandmother Hypertensive disorder API-[email or web address] Not available 2024 08:47:54 Maternal Grandmother Obese API-[email or web address] Not available 2024 08:47:54 Maternal Grandmother Dementia [email or web address] Not available 08/19 08:47:54 Maternal Grandfather Arthritis [email or web address] Not available 07/26 08:47:54 Maternal Grandfather Obese API-[email or web address] Not available 2024 08:47:54 Maternal Grandfather Dementia [email or web address] Not available 08/19 08:47:54 Paternal Grandfather Myocardial infarction [email or web address] Not available 08/19 08:47:54 Paternal Grandfather Arthritis [email or web address] Not available 07/26 08:47:54 Paternal Grandfather Coronary arterioscler osis [email or web address] Not available 2024 08:47:54 Paternal Grandfather Heart disease [email or web address] Not available 2024 08:47:54 Medical History Condition Response Allergies/Hayfever Y Muscle, Joint, or Bone Problems Y Headaches Y Reflux/GERD Y Pre-Eclampsia Y Gynecological HistoryNo gynecological history recorded. Obstetrics History GPAL:G 0 P 0 0 0 0 Immunizations Vaccine Type Date Status Note Provider Nam e and Address Organization Details Recorded Time COVID-19 vaccine, vector-nr, rS-Ad26, PF, 0.5 mL 1 completed Not Available [facility] 02/17/2025 08:55:32 Influenza, split virus, trivalent, preservative 1 completed Not Available [facility] 02/17/2025 08:55:32 COVID-19 vaccine, vector-nr, rS-Ad26, PF, 0.5 mL 1 completed Not Available [facility] 02/17/2025 08:55:32 Tdap 3 completed Not Available [facility] 02/17/2025 08:55:32 HepB-CpG 3 completed Not Available [facility] 02/17/2025 08:55:32 Influenza, recombinant, quadrivalent, PF 3 completed Not Available [facility] 02/17/2025 08:55:32 HepB-CpG 3 completed Not Available [facility] 02/17/2025 08:55:32 Influenza, split virus, trivalent, PF 4 completed Not Available [facility] 02/17/2025 08:55:32 Past Encounters Encounter ID Performer Location Encounter Start Date Encounter Closed Date Diagnosis/Indication Diagnosis SNOMED-CT Code Diagnosis ICD10 Code Diagnosis IMO Codes Diagnosis Note [id number] TRINITY TAMAYO, DO [facility] [place] [id number] [facility],[address] [place] [address] 02/18/2023 10:26:13 02/18/2023 12:08:30 Tuberculosis screening 358496497 Z11.1 Patient has failed a screening test. She will have a chest x-ray. I suspect this is a false positive given she is low risk and had a negative screening test just a few months ago.Jordan rapp has already been turned into the health department suspect she will be required to have treatment for latent tuberculos is. We will follow-up on the results of her chest x-ray, if those are indeed positive, she will be referred to infectious disease for further evaluation [id number] TRINITY TAMAYO, DO [facility] [address] [place] [address] 05/15/2023 09:17:10 05/15/2023 09:46:57 Adult attention deficit hyperactivity disorder 779180601 F90.9 Doing well with medication continue current medication 90 days Low back pain 879548342 M54.50 Managed by orthopedic s, planning to see spinal surgeon. Okay to continue NSAIDs, baclofen as needed [id number] TRINITY TAMAYO, DO [facility] [address] [place] [address] 08/14/2023 08:47:11 08/14/2023 09:32:55 Adult attention deficit hyperactivity disorder 431769746 F90.9 Doing well with medication continue current medication 90 days Adult heal th examination 427834865 Z00.00 Up-to-date on routine health maintenanc e examinatio ns, check routine labs today Restless l egs syndrome 57092246 G25.81 Does well with medication mostly takes at night no issues Renewal of prescription 560855006 Z76.0 [id number] [place] [address] [place] [address] 08/15/2023 15:05:33 08/16/2023 05:04:26 Dysfunction of right eustachian tube 4403806961 756494 H69.91 Audiogram 08/15/23 - hearing is normal Bilateral tinnitus 11099 63755 102 H93.13 Temporoman dibular joint disorder 78146902 M26.609 [id number] RUPAL NELSON [place] [address] [place] [address] 08/15/2023 15:58:46 08/16/2023 05:25:07 Hearing examination 373008639 Z01.10 [id number] TRINITY TAMAYO, DO [facility] [address] [place] [address] 11/13/2023 09:08:15 11/13/2023 09:58:52 Restless legs syndrome 95322616 G25.81 Does well with medication mostly takes at night no issues Adult atte ntion deficit hyperactivity disorder 733390488 F90.9 Doing well with medication continue current medication 90 days-No issues blood pressure is good Mixed hyperlipidemia 267 660335 E78.2 LDL 160- on red yeast rice. - rec 6 mo [id number] TRINITY TAMAYO, DO [facility] [address] [place] [address] 02/12/2024 09:15:44 02/12/2024 09:38:07 Adult attention deficit hyperactivity disorder 323171680 F90.9 Doing well with medication continue current medication 90 days-No issues blood pressure is good Restless l egs syndrome 58632958 G25.81 Does well with medication mostly takes at night no issues Mixed hyperlipidemia 267 892902 E78.2 LDL 160- 08/17 on red yeast rice. Gastroesop hageal reflux disease without esophagitis 999035731 K21.9 Does well on Pepcid Weight loss 94918821 R63 .4 getting zepbound at [facility] [id number] TRINITY TAMAYO, DO [facility] [address] [place] [address] 05/13/2024 08:33:10 05/13/2024 09:20:43 Adult attention deficit hyperactivity disorder 052133863 F90.9 Doing well with medication continue current medication 90 days-Will increase dose, 40 to 50 mg, discussed medication holidays, sensitivit y to medication Restless l egs syndrome 15042714 G25.81 Does well with medication mostly takes at night no issues Renewal of prescription 692807763 Z76.0 Weight loss 32159814 R63 .4 getting zepbound at [facility] Hyperlipidemia 43344641 E78.5 rec to start statin. crestor 5mg [id number] TRINITY TAMAYO, DO [facility] [address] [place] [address] 08/19/2024 08:47:53 08/19/2024 09:41:13 Adult attention deficit hyperactivity disorder 306650139 F90.9 Doing well with medication continue current medication 90 days-Will increase dose, 40 to 50 mg, discussed medication holidays, sensitivit y to medication 08/18- doing better with 50. Restless l egs syndrome 29988895 G25.81 Does well with medication mostly takes at night no issues Gastroesop hageal reflux disease without esophagitis 805303585 K21.9 Does well on Pepcid Adult heal th examination 865642135 Z00.00 Up-to-date on routine health maintenanc e examinatio ns, check routine labs todaysee carpenter mate - [facility] [place] Hyperlipidemia 06302409 E78.5 rec to start statin. crestor 5mg08/18- tried - muscle issues. Weight loss 08572904 R63 .4 getting zepbound at [facility] now on 10mg - Screening for malignant neoplasm of colon 235689748 Z12.11 6-7 yr ago. clean [id number] TRINITY TAMAYO, DO [facility] [address] [place] [address] 11/18/2024 09:10:16 11/18/2024 09:35:48 Restless legs syndrome 12980183 G25.81 Does well with medication mostly takes at night no issues Adult atte ntion deficit hyperactivity disorder 322076039 F90.9 Doing well with medication continue current medication 90 days-Will increase dose, 40 to 50 mg, discussed medication holidays, sensitivit y to medication 08/18- doing better with 50.11/18-no issues no concerns [id number] TRINITY TAMAYO, DO [facility] [address] [place] [address] 02/17/2025 08:54:33 02/17/2025 09:28:37 Adult attention deficit hyperactivity disorder 931608740 F90.9 Doing well with medication continue current medication 90 days-Will increase dose, 40 to 50 mg, discussed medication holidays, sensitivit y to medication 08/18- doing better with 50.6/25-no issues no concerns-no change- Maintain current medication regimen; no changes needed as per patient report. Restless l egs syndrome 65861700 G25.81 Does well with medication mostly takes at night no issues- Continue Gabapentin as currently effective in managing symptoms. Gastroesop hageal reflux disease without esophagitis 298809800 K21.9 Does well on Pepcid- Continue Pepcid; symptoms appear to be managed effectivel y. Health Concerns Section Related Observation LastModified by Organization Detai ls LastModified Time None Recorded Concern Status LastModified by Organization Details LastModified Time None Recorded Advance Directives Directive None Recorded Payers Insurance Date Sequence Insurance Name Policy Number Policy Newsome Covered Member ID Newsome Member ID Guarantor Name 01/22/2025 2 ( - INDEMNITY) Daisy Seivers [id number] Daisy Seivers 02/17/2025 1 [place] [id number] 1 Daisy Seivers [id number] Daisy Seivers 05/07/2024 1 [place] [id number] Daisy Seivers [id number] Daisy Seivers 05/07/2024 2 () Daisy Seivers [id number] Daisy Seivers 05/07/2024 2 [facility] ( - PPO) Daisy Seivers [id number] Daisy Seivers Notes Date Note Type Note Provider Name and Address Organization Details Recorded Time 02/12/2024 text/html FOLLOW UP VISIT Medication Refills--lisdexamfetam ine 40 mg capsule Symptoms-- Just needs meds refilled Duration- Patient is a 53-year-old female here for follow-up visit, she has restless leg syndrome, chronic back pain, she takes gabapentin, baclofen at night, she has reflux disease on PPI, as well as attention deficit disorder, she does well on low-dose Vyvanse, she is now at weight loss medication, she feels like it is helping TRINITY ROSENBERG, DO [address] [place], [address], [facility] 02/12/2024 12:16:33 05/13/2024 text/html Patient is a 53-year-old female here for follow-up visit, overall feels like she is doing about the same, she does not feel like the 40 mg of Vyvanse is working as well as it used to, she has been on the same dose for several years, she has difficulty taking medication holidays, she struggles the day she does not take her medication with doing work around the house. She is losing weight through [facility] [place] weight loss program. She has tried getting her cholesterol down naturally but it is not worked very well, she is reluctantly taking low-dose statin TRINITY ROSENBERG, DO [address] [place], [address], [facility] 05/13/2024 11:31:55 08/19/2024 text/html Patient is 54-year-old female here for annual examinationShe has attention deficit disorder, restless leg syndrome, reflux disease, she has hyperlipidemia, had side effects to statins. She is on Zepbound for weight loss, is working pretty well for her. Up-to-date on mammograms up-to-date on colon cancer screening, no chest pain no trouble breathing no bowel or bladder problems TRINITY ROSENBERG, DO [address] [place], [address], [facility] 08/19/2024 15:26:27 11/18/2024 text/html Patient is a 54-year-old female here for follow-up visit, she has restless leg syndrome takes gabapentin at night, she has attention deficit disorder takes Vyvanse during the day, feels like she is doing pretty well with her medicine we recently increased her dose. She is doing excellent with her weight loss. Labs last month all look very good No chest pains or trouble breathing TRINITY ROSENBERG, DO [address] [place], [address], [facility] 11/18/2024 10:08:54 02/17/2025 text/html The patient is a 54-year-old female presenting with a request for medication management. She has been managing symptoms related to her diagnosed conditions: attention deficit hyperactivity disorder, restless legs syndrome, and gastroesophageal reflux disease. The medication regimen, including Gabapentin, Pepcid, Zofran, and Tirzepatide, plays a vital role in her current symptom control and has been effective, notably resulting in significant weight loss. The patient's medical history reveals that her son's recurring cyst fractures require attention and have been directed towards specialized care. A stress test was conducted the previous month, with accessible results for further clinical reference. Her detailed involvement in family care and ongoing treatments exhibits a proactive approach to health management. Medical History: - Adult Attention Deficit Hyperactivity Disorder - Restless Legs Syndrome - Gastroesophageal Reflux Disease without Esophagitis Medications: - Gabapentin 600 mg for Restless Legs Syndrome - Pepcid for Gastroesophageal Reflux Disease - Zofran for unspecified nausea management - Tirzepatide for weight loss or management Social History: - Family Status: Active involvement in her children's activities, one child plays youth football, and the other is under medical care for a bone cyst. - Employment: Working status noted, but no specific details provided. - Weight Management: Significant weight loss of approximately 40-41 pounds, currently engaged with Tirzepatide for continued weight management. Diagnostic Results: - Stress test conducted last month, results available in care everywhere system Documentation on this patient encounter was supported using voice-enabled Al technology. The patient consented to recording for the purpose of documenting the encounter. Provider reviewed content of the generated note prior to signature. TRINITY ROSENBERG, DO [address] [place], [address], [place] [facility] 02/17/2025 12:49:38 OBGyn Episode No OBEpisode recorded.
--- OUTSIDE RECORDS SUMMARY | 2025-05-02 13:09 | XMS_ITS | Clinical Summary ---
Author Organization [facility] Address [address] [place] [address] Care Team Providers Care Health Unit Coordinator Name Role Phone Eloy Bonilla Rinku MYERS Primary Care Provider Allergies No known active allergies Medications Lifitegrast (Xiidra) 5 % ophthalmic solution Administer 1 drop to both eyes 2 (Two) Times a Day. 60 each 6 4 8:03 AM EST 08/14/19 23 Active gabapentin (NEURONTIN) 600 MG tablet Take 1 tablet by mouth 2 (Two) Times a Day. Active azelastine (ASTELIN) 0.1 % nasal spray Administer 2 sprays in each nostril twice daily 30 mL 2 4 2:30 PM EDT 07/17/19 24 Active Semaglutide-Weigh t Management 1 MG/0.5ML solution auto-injector Inject 0.5 mL under the skin into the appropriate area as directed 1 (One) Time Per Week. 2 mL 5 4 2:04 PM EDT 08/06/19 24 Active gabapentin (Neurontin) 600 MG tablet Take 1 tablet by mouth 3 times a day. 90 tablet 2 4 11:24 AM EDT 08/14/19 24 Active ondansetron ODT (ZOFRAN-ODT) [address] 1 tablet on the tongue 2 (Two) Times a Day As Needed. 60 tablet 2 4 3:33 PM EDT 08/14/19 24 Active methylPREDNISolon e (Medrol) 4 MG dose pack Take 1 dose pk every day by oral route as directed. 21 tablet 09/13/19 24 Active baclofen (LIORESAL) 10 MG tablet Take 1 tablet by mouth 2 (Two) Times a Day. 180 tablet 1 4 2:43 PM EDT 01/17/20 24 Active gabapentin (NEURONTIN) 600 MG tablet Take 1 tablet by mouth 3 times a day. 450 tablet 4 2:43 PM EDT 11/13/19 24 Active baclofen (LIORESAL) 10 MG tablet Take 1 tablet by mouth 2 (Two) Times a Day. 180 tablet 5 10:17 AM EDT 02/12/20 24 Active gabapentin (Neurontin) 600 MG tablet Take 1 tablet by mouth 3 times a day. 270 tablet 1 02/12/20 24 Active gabapentin (Neurontin) 600 MG tablet Take 1 tablet by mouth 3 times a day 90 tablet 2 5 12:43 PM EST 05/13/20 24 Active ondansetron ODT (ZOFRAN-ODT) [address] 1 tablet on the tongue 2 (Two) Times a Day As Needed. 60 tablet 2 5 12:43 PM EST 05/13/20 24 Active lisdexamfetamine (Vyvanse) 50 MG capsule Take 1 capsule by mouth Daily 90 capsule 4 12:53 PM EST 05/13/20 24 Active lisdexamfetamine (Vyvanse) 50 MG capsule Take 1 capsule by mouth Daily 90 capsule 05/13/20 24 Active famotidine (PEPCID) 40 MG tablet Take 1 tablet by mouth Daily. 90 tablet 1 5 2:20 PM EDT 08/20/19 25 Active ondansetron ODT (ZOFRAN-ODT) [address] 1 tablet on the tongue 2 (Two) Times a Day As Needed. 60 tablet 2 5 10:08 AM EDT 08/20/19 25 Active lisdexamfetamine (Vyvanse) 50 MG capsule Take 1 capsule by mouth Daily 90 capsule 5 2:20 PM EDT 08/20/19 25 Active estradiol (ESTRACE) 0.1 MG/GM vaginal cream Insert 1 g into the vagina 3 (Three) Times a Week (Saturday, Saturday, and Saturday) 45 g 2 5 10:17 AM EDT 08/20/19 25 Active famotidine (PEPCID) 40 MG tablet Take 1 tablet by mouth Daily. 90 tablet 1 5 12:28 PM EDT 11/19/19 25 Active gabapentin (Neurontin) 600 MG tablet Take 1 tablet by mouth 3 times a day for 90 days. 270 tablet 1 11/19/19 25 Active famotidine (PEPCID) 40 MG tablet Take 1 tablet by mouth Daily. 90 tablet 1 5 2:25 PM EDT 02/18/20 25 Active gabapentin (Neurontin) 600 MG tablet Take 1 tablet by mouth 3 times a day. 270 tablet 1 5 2:25 PM EDT 02/18/20 25 Active ondansetron ODT (ZOFRAN-ODT) [address] 1 tablet on the tongue 2 (Two) Times a Day As Needed. 60 tablet 2 5 12:15 PM EST 02/18/20 25 Active lisdexamfetamine (Vyvanse) 50 MG capsule Take 1 capsule by mouth Daily 90 capsule 5 2:25 PM EDT 02/18/20 25 Active rosuvastatin (CRESTOR) 5 MG tabletIndications :Hypercholesterol emia Take 1 tablet by mouth Every Night. 90 tablet 4 10:33 AM EST 04/30/20 24 025 Discontinue d(Patient Reported Not Taking) Active Problems Problem Noted Date Diagnosed Date Low back pain with sciatica 06/28/2023 SHAR (obstructive sleep apnea) 06/28/2023 Class 1 obesity due to exces s calories without serious comorbidity with body mass index (BMI) of 31.0 to 31.9 in adult 06/28/2023 Abnormal EKG 06/28/2023 Palpitations 06/28/2023 Resolved Problems Problem Noted Date Diagnosed Date Resolved Date Exposure to COVID-19 virus 06/28/2023 0 06/28/2023 Bronchitis 06/28/2023 06/28/2023 Pharyngitis 06/28/2023 06/28/2023 Sinusitis 06/28/2023 06/28/2023 Right ankle sprain 06/28/2023 02/02/202 4 Immunizations Immunization Administration Dates Next Due Flublok 18+yrs 03/01/2023 Hepatitis B 2 Dose Vaccine Heplisav-B 04/03/2023 ,03/01/2023 Influenza Seasonal Injectable 03/15/2021 Tdap 02/15/2023 Social History Tobacco Use Types Packs/Day Years Used Date Smoking Tobacco: Never Passive Smoke Exposure: Never Smokeless Tobacco: Never Tobacco Cessation:Counseling Given: Not Answered Alcohol Use Standard Drinks/Week Comments Not Currently 0 (1 standard drink = 0.6 oz pur e alcohol) Comments Unknown Sex and Gender Information Value Date Recorded Sex Assigned at Not on file Legal Sex Female 10:52 AM EDT Gender Identity Not on file Sexual Orientation Not on file Last Filed Vital Signs Vital Sign Reading Time Taken Comments Blood Pressure 139/75 12/22/2024 11:08 AM EDT Pulse 83 12/22/2024 11:08 AM EDT Temperature - - Respiratory Rate - - Oxygen Saturation 98% 06/28/2023 2:33 PM EST Inhaled Oxygen Concentration - - Weight 81.2 kg (179 lb) 12/22/2024 11:08 AM EDT Height 172.7 cm (5' 8 ) 12/22/2024 11:08 AM EDT Body Mass Index 27.22 12/22/2024 11:08 AM EDT Plan of Treatment Health Maintenance Due Date Last Done Comments Annual Gynecologic Pelvic an d Breast Exam 1970 PAP SMEAR 1991 MAMMOGRAM 2010 COLOGUARD 2015 COLON CANCER SCREENING 5 YEA R SIGMOIDOSCOPY 2015 COLONOSCOPY [address] CANCER SCREENING 2015 CT COLONOGRAPHY 2015 FECAL OCCULT BLOOD TEST 2015 FIT Testing (1 year) 2015 Pneumococcal Vaccine 50+ (1 of 1 - PCV) 2020 ZOSTER VACCINE (1 of 2) 2020 ANNUAL PHYSICAL 03/03/2021 HEPATITIS C SCREENING 03/03/2021 INFLUENZA VACCINE 12/25/2024 03/18/2024, , 03/15/2021 TDAP/TD VACCINES (2 - Td or Tdap) 02/15/2033 023 [place] [address] [employer] Care Teams Health Unit Coordinator Relationship Specialty Start Date End Date Bonilla Lyons DO [address] [facility] [address] [place] [address] PCP - General Internal Medicine 02/18/23
--- OUTSIDE RECORDS SUMMARY | 2025-05-02 13:09 | XMS_ITS | Continuity of Care Document ---
Author Organization [place] - [facility] Address [address] [facility] [address] [place] [address] Assessment Encounter Date Assessment Date Assessment LastModified [...] Organization Details Last Modified Time Details Appointments RECHE CK 2024 09:00A M DR ROSENBERG Not available Not available Not available Lab None recor ded. Referral None recor ded. Procedures None recor ded. Surgeries None recor ded. Imaging None recor ded. Medication Orders Neuro ntin 600 mg table t 2024 025 [facility] [address] [facility] [address], [place], [address], 02/17/2025 09:24:53 famot idine 40 mg table t 2024 025 [facility] [address] [facility] [address], [place], [address], 02/17/2025 09:24:53 ondan setro n 4 mg disin tegra ting table t 2024 025 [facility] ([facility]), [address], [place], [address], 02/17/2025 09:24:53 Vyvan se 50 mg capsu le 2024 025 [facility] ([facility]), [address], [place], [address], 02/17/2025 09:24:54 Patient TargetsNo targets recorded. Patient Instructions Encounter Date Encounter Id Patient Instructions Last Modified By Organization Details Last Modified Time 02/17/2025 [id number] - Continue current medications as prescribed. - Monitor weight and report any significant changes. 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 - Maintain lifestyle and dietary plan for weight management. - Seek care if new symptoms arise or if current conditions worsen. [email or web address] Not available 02/17/2025 09:27:01 Reason for Referral None Reported. Problems Name Problem SNOMED Code Status Onset Date Resolution Date Notes Provider Name and Address Organization Details Recorded Time Low back pain 280090612 Active 2022 TRINITY MERAZ, DO [address] [place], [address], [facility] 3 10:55:10 Adult attention deficit hyperactivity disorder 511250548 Active 2022 TRINITY MERAZ, DO [address] [place], [address], [facility] 3 10:55:12 Mixed hyperlipidemia 565738314 Active 2023 TRINITY MERAZ, DO [address] [place], [address], [facility] 4 09:52:18 Gastroesophage al reflux disease without esophagitis 706461093 Active 2023 TRINITY MERAZ, DO [address] [place], [address], [facility] 4 12:16:15 Weight loss 27570282 Active 2023 TRINITY RANDALLKRISHNA MERAZ, DO [address] [place], [address], [facility] 4 09:13:23 Restless legs syndrome 44762843 Active 2023 TRINITY MEKAMARAKRISHNA MERAZ, DO [address] [place], [address], [facility] 4 09:13:30 Hyperlipidemia 43929409 Active 2023 TRINITY MERAZ, DO [address] [place], [address], [facility] 4 09:15:34 Problem Notes None recorded. Procedures Surgical History Date Name Laterality Status Provider Name and Address Organization Details Recorded Time 08/15/19 24 Tympanogram completed [facility] 08/15/2023 15:59:14 08/15/19 24 Audiogram completed [facility] 08/15/2023 15:59:11 Partial Hysterectomy completed Not Available [facility] 08/19/2024 08:47:55 Back Surgery completed Not Available [facility] 08/19/2024 08:47:55 Cholecystectomy completed Not Available [facility] 08/19/2024 08:47:55 Colonoscopy completed Not Available [facility] 08/19/2024 08:47:55 Eye Surgery completed Not Available [facility] 08/19/2024 08:47:55 Tubal Ligation completed Not Available [facility] 08/19/2024 08:47:55 Imaging Results None recorded. Procedure [...] Insulin Syringe 0.5 mL 31 gauge x 16 USE DIRECTED active Not Available Not Available [...] and Address Organization Details Last Updated DateTime 172.72 cm 26.6 kg/m2 04379.6 6 g 90 /min 99 % 128/74 mm[Hg] Susie Barrow [facility] 09:15:48 Social History Question Answer Notes LastModified by Organizat ion Details LastModified Time Tobacco Smoking Status Never Smoker [facility] 02/18/2023 11:09:21 How Many Years Have You [...] not available 08/19/2024 What is your occupation? [employer] [id number] Information not available 08/19/2024 Mental Status [...] available 2024 08:47:54 Medical History Condition Response Muscle, Joint, or Bone Problems Y Headaches Y Allergies/Hayfever Y Reflux/GERD Y Pre-Eclampsia Y Gynecological HistoryNo gynecological history recorded. Obstetrics History GPAL:G 0 P 0 0 0 0 Immunizations Vaccine Type Date Status Note Provider Nam e and Address Organization Details Recorded Time COVID-19 vaccine, vector-nr, rS-Ad26, PF, 0.5 mL 1 completed Not Available [facility] 02/17/2025 08:55:32 Influenza, split virus, trivalent, preservative 1 completed Not Available [facility] 02/17/2025 08:55:32 COVID-19 vaccine, vector-nr, rS-Ad26, PF, 0.5 mL 1 completed Not Available [facility] 02/17/2025 08:55:32 Tdap 3 completed Not Available [facility] 02/17/2025 08:55:32 HepB-CpG 3 completed Not Available [facility] 02/17/2025 08:55:32 Influenza, recombinant, quadrivalent, PF 3 completed Not Available [facility] 02/17/2025 08:55:32 HepB-CpG 3 completed Not Available [facility] 02/17/2025 08:55:32 Influenza, split virus, trivalent, PF 4 completed Not Available [facility] 02/17/2025 08:55:32 Past Encounters Encounter ID Performer Location Encounter Start Date Encounter Closed Date Diagnosis/Indication Diagnosis SNOMED-CT Code Diagnosis ICD10 Code Diagnosis IMO Codes Diagnosis Note [id number] TRINITY DORIAN LL, DO [facility] [address] [place] [address] 02/17/2025 08:54:33 02/17/2025 09:28:37 Adult attention deficit hyperactivity disorder 156676299 F90.9 Doing well with medication continue current medication 90 days-Will increase dose, 40 to 50 mg, discussed medication holidays, sensitivit y to medication 08/18- doing better with 50.11/18-no issues no concerns-no change- Maintain current medication regimen; no changes needed as per patient report. Restless l egs syndrome 44203698 G25.81 Does well with medication mostly takes at night no issues- Continue Gabapentin as currently effective in managing symptoms. Gastroesop hageal reflux disease without esophagitis 911565800 K21.9 Does well on Pepcid- Continue Pepcid; symptoms appear to be managed effectivel y. Health Concerns Section Related Observation LastModified by Organization Detai ls LastModified Time None Recorded Concern Status LastModified by Organization Details LastModified Time None Recorded Payers Encounter Date Sequence Insurance Name Policy Number Policy Newsome Covered Member ID Newsome Member ID Guarantor Name 02/17/2025 1 [place]: [place] OF [place] [id number] 1 Daisy Stock [id number] Daisy Stock Notes Date Note Type Note Provider Name and Address Organization Details Recorded Time 02/17/2025 text/html The patient is a 54-year-old [...] generated note prior to signature. TRINITY ROSENBERG, [address] [facility] [place], [address], [facility] 02/17/2025 12:49:38 OBGyn Episode No OBEpisode recorded.
--- OUTSIDE RECORDS SUMMARY | 2025-05-02 13:09 | XMS_ITS | Clinical Summary ---
Author Organization Healthcare Address [address] [place] [address] Care Team Providers Care Baseball Pitcher Name Role Phone Keith Mccain MD Primary Care Provider [phone] Social History Tobacco Use Types Packs/Day Years Used Date Smoking Tobacco: Never Assessed Comments Unknown Sex and Gender Information Value Date Recorded Sex Assigned at Not on file Legal Sex Female 7:42 PM EDT Gender Identity Not on file Sexual Orientation Not on file Last Filed Vital Signs Vital Sign Reading Time Taken Comments Blood Pressure - - Pulse - - Temperature - - Respiratory Rate - - Oxygen Saturation - - Inhaled Oxygen Concentration - - Weight 87.1 kg (192 lb) 06/10/2015 9:05 AM EST Height 174 cm (5' 8.5 ) 06/10/2015 9:05 AM EST Body Mass Index 28.77 06/10/2015 9:05 AM EST Plan of Treatment Not on file Care Teams Baseball Pitcher Relationship Specialty Start Date End Date Keith Mccain MD [address] [place] [id number] PCP - General 10/07/20
--- OUTSIDE RECORDS SUMMARY | 2025-05-02 13:09 | XMS_ITS | Patient Health Record ---
Author Organization [facility] Address [address] [facility] [address] [place] [address] Care Team Providers Care Cranberry Grower Name Role Phone Myriam Adair [phone] Allergies Allergen (clinical drug ingredient) Drug/Non Drug Allergy documented on EMR Reaction Allergy Type Onset Date Status CODEINE PHOSPHATE (CODEINE PHOSPHATE SOLN) Unspecified Drug Allergy 07/03/2017 Active Reason For Referral No Information Social History Social History Additional Details Category Social Info Options Details Miscellaneous: Caffeine: CAFFEINE USE: 1-3 /day Problems Problem Type SNOMED Code ICD Code Onset Dates Problem Status W/U Status Risk Notes Problem BMI 25-29 - overweight (192994143) Adult BMI 29.0-29.9 kg/sq m (Z68.29) 03/22/2021 Active confirmed Body mass index [BMI] 29.0-29.9, adult Plan Of Treatment No Information Medical (General) History Medical History History ICD Code ABORTIONS: 0 MENSTR FLOW: Heavy Acid Reflux Breast Pain Fibrocystic Breasts Irritable Bowel Urinary Tract Infections Yeast Infections RLS estradiol 0.5 mg tablet, BY MOUTH phentermine 37.5 mg tablet, BY MOUTH Fish Oil 300-1,000 mg capsule,delayed re lease(DR/EC) VITAMINS CALCIUM 600+D3 PLUS MINERALS TABLET CHEW ABLE Neurontin 600 mg tablet ESTROVEN MENOPAUSE RELIEF TABLET Surgical History Surgery Date(Month/Year) L5-S1 Fusion, Rt carpel tunnel, Lab chol ecystectomy
== END 2025-04-29 23:59 | disposition home or self-care (01) ==
LOC: LAB.DROPOF 05-02 13:07
PROVIDERS: PCP Internal Medicine; Visit Provider Student in an Organized Health Care Education/Training Program
DX: J06.9 Acute upper respiratory infection, unspecified (principal)
CPT/HCPCS: 87631